=== PATIENT | female | born 1975 | race African-American/Black ===

== ENCOUNTER 2021-03-28 11:44 | Inpatient (IN) | payer BC, OTHER ==
[~2021-03-28] VITALS: Ht 165.1 cm; Wt 99.8 kg
--- NOTE | 2021-03-28 11:55 | NUR ---
SE LLAMA PTE Y NO RESPONDE
--- NOTE | 2021-03-28 12:46 | NUR ---
SE RECIBE PACIENTE ALERTA Y ORIENTADA X3 QUIEN INDICA QUE SIENTE MAL Y QUIERE RECIBIR CARTAGENA DIALISIS. SE MONITOREAN LOS S/V YSE PRESENTA JAY A DRS DE DAVONO. SE UBICA PACIENTE.
--- NOTE | 2021-03-28 14:31 | NUR ---
SE REALIZA NOLVIA DE MUESTRAS A PACIENTE BAJOMEDIDAS ASEPTICAS Y DE SEGURIDAD. SE ORIENTA A PACIENTE ACERCA DEL TRATAMIENTO OFRECIDO EN MELODY DE EMERGENCIAS. SE MANTIENE PACIENTE EN OBSERVACION POR CAMBIOS SIGNIFICATIVOS.
[2021-03-29] MEDS ORDERED: CLINDAMYCIN PH1 EACH (08:20)
[2021-03-29] MEDS ORDERED: ALPRAZOLAM0.25 MG (08:20)
[2021-03-29] MEDS ORDERED: AMLODIPINE BESY10 MG (08:20)
[2021-03-29] MEDS ORDERED: AURYXIA210 MG (08:20)
[2021-03-29] MEDS ORDERED: ADULT ASPIRIN81 MG (08:21)
[2021-03-29] MEDS ORDERED: SEVELAMER CARB800 MG (08:21)
[2021-03-29] MEDS ORDERED: METOPROLOL SUC100 MG (08:21)
[2021-03-29] MEDS ORDERED: NATEGLINIDE60 MG (08:21)
[2021-03-29] MEDS ORDERED: RENA-VITE TABL0.8 MG (08:21)
[2021-03-29] MEDS ORDERED: FOLIC ACID1 MG (08:21)
[2021-03-29] MEDS ORDERED: CLOPIDOGREL BIS75 MG (08:21)
== END 2021-03-30 10:13 | disposition left against medical advice (07) | DRG 682 ==
LOC: ER 11:44 → SEC-K 20:57 → MEDJ 03-29 01:06
PROVIDERS: ADMIT Internal Medicine; ATTEND Internal Medicine
PROC: BW24ZZZ Computerized Tomography (CT Scan) of Chest and Abdomen (ICD-10-PCS; principal; 2021-03-29)
DX: I12.0 Hypertensive chronic kidney disease with stage 5 chronic kidney disease or end stage renal disease (principal); U07.1 COVID-19; N18.6 End stage renal disease; E11.22 Type 2 diabetes mellitus with diabetic chronic kidney disease; Z79.4 Long term (current) use of insulin; D63.1 Anemia in chronic kidney disease; E66.01 Morbid (severe) obesity due to excess calories